=== PATIENT | male | born 1940 ===

== ENCOUNTER 2018-12-12 10:20 | Emergency (ER) | payer BC, MEDICARE ==
--- NOTE | 2018-12-12 10:38 | EDM.PDOC ---
ED HPI GENERAL MEDICAL PROBLEM - General Chief Complaint: Lower Extremity Injury/Pain Stated Complaint: HEMATOMA ON BACK OF LEG Time Seen by Provider: 12/12/18 10:25 Source of Information: Reports: Patient, Family, RN, RN Notes Reviewed History Limitations: Reports: No Limitations - History of Present Illness INITIAL COMMENTS - FREE TEXT/NARRATIVE: Pt presents to ER with c/o of a large bruise on the left medial thigh following a cardiac catheter from the left groin last week. Pt became worried because the discoloration is slowly spreading down his leg. Denies pain, swelling, increased warmth, redness, or fever. Duration: Constant Location: Reports: Lower Extremity, Left Quality: Reports: Ache Severity: Mild Improves with: Reports: None Worsens with: Reports: None Associated Symptoms: Reports: No Other Symptoms - Related Data Allergies Allergy/AdvReac Type Severity Reaction Status Date / Time No Known Allergies Allergy Verified 12/12/18 10:31 Home Meds: Home Meds Aspirin [Halfprin] 81 mg PO BID 12/12/18 [History] Calcitriol 0.25 mcg PO DAILY 12/12/18 [History] Cholecalciferol (Vitamin D3) [Vitamin D3] 400 unit PO DAILY 12/12/18 [History] Lisinopril 5 mg PO DAILY 12/12/18 [History] Metoprolol Succinate [Toprol XL 50mg] 50 mg PO DAILY 12/12/18 [History] Multivitamin [Multivitamins] 1 cap PO DAILY 12/12/18 [History] Tamsulosin [Tamsulosin 24 Hr] 0.4 mg PO Q48H 12/12/18 [History] atorvaSTATin [Lipitor] 10 mg PO BEDTIME 12/12/18 [History] Past Medical History Cardiovascular History: Reports: CAD, PTCA Social & Family History - Family History Family Medical History: Noncontributory - Living Situation & Occupation Living situation: Reports: , with Spouse Occupation: Retired Review of Systems - Review of Systems Review Of Systems: ROS reveals no pertinent complaints other than HPI. ED EXAM, GENERAL - Physical Exam Exam: See Below Exam Limited By: No Limitations General Appearance: Alert, WD/WN, No Apparent Distress Throat/Mouth: Normal Voice, No Airway Compromise Head: Atraumatic, Normocephalic Respiratory/Chest: No Respiratory Distress Cardiovascular: Normal Peripheral Pulses Extremities: Normal Range of Motion, Non-Tender, No Pedal Edema Neurological: Alert, Oriented, No Motor/Sensory Deficits Psychiatric: Normal Mood Skin Exam: Warm, Dry, Intact, Other (large hematoma with bruising from left groin to left knee) Departure - Departure Time of Disposition: 10:35 Disposition: Home, Self-Care 01 Condition: Good Clinical Impression: Hematoma of left lower extremity Qualifiers: Encounter type: initial encounter Qualified Code(s): S80.12XA - Contusion of left lower leg, initial encounter - Discharge Information *PRESCRIPTION DRUG MONITORING PROGRAM REVIEWED*: No *COPY OF PRESCRIPTION DRUG MONITORING REPORT IN PATIENT ALFONZO: No Instructions: Hematoma, [id number] Forms: ED Department Discharge Additional Instructions: No specific treatment is needed. Follow up in clinic if not resolving in 2 weeks.
== END 2018-12-12 10:41 | disposition home or self-care (01) ==
LOC: DL.ED 10:20
DX: M79.81 Nontraumatic hematoma of soft tissue (principal); Z79.82 Long term (current) use of aspirin; Z79.899 Other long term (current) drug therapy
CPT/HCPCS: 99282

== ENCOUNTER 2022-08-30 10:18 | Emergency (ER) | payer BC, MEDICARE ==
[~2022-08-30 10:18] MED LIST: Albuterol/Ipratropium 3.0-0.5 MG/3 ML Neb Soln NEB ONE
[2022-08-30 10:49] LABS: PTT,PARTIAL THROMBOPLSTIN TIME 29.4 SEC (22.0-34.0)
[2022-08-30 10:57] LABS: O2 DELIVERY DEVICE NASAL CANNULA
[2022-08-30 10:58] LABS: ALLEN TEST POSITIVE
[2022-08-30 10:59] LABS: BASE EXCESS ARTERIAL -3 mmol/L ((-2)-(+3)); BICARBONATE,ARTERIAL 21.3 mmol/L (22-26); O2 SATURATION ARTERIAL 92 % (95-100); PCO2 ARTERIAL 31 mmHg (35-45); PO2 ARTERIAL 61 mmHg (70-100)
[2022-08-30 11:01] LABS: ANION GAP 14.3 mEq/L (7-13)
[2022-08-30 11:09] LABS: CORONAVIRUS COVID-19 NAA NEGATIVE (NEGATIVE); RESPIRATORY SYNCYTIAL VIR NAA NEGATIVE (NEGATIVE)
[2022-08-30] MEDS ORDERED: Lidocaine 1% 10 ML MDV INJECT ONE (11:30)
[2022-08-30] MEDS ORDERED: Midazolam 1 MG/ML 2 ML SDV ONE (12:00)
[2022-08-30] MEDS ORDERED: Midazolam 1 MG/ML 2 ML SDV IVPUSH ONE (12:00)
[2022-08-30] MEDS ORDERED: Ondansetron 4 MG/2 ML SDV IVPUSH ONE (12:00)
[2022-08-30] MEDS ORDERED: fentaNYL 100 MCG/2 ML SDV ONE (12:00)
[2022-08-30] MEDS ORDERED: fentaNYL 100 MCG/2 ML SDV IVPUSH ONE (12:00)
[2022-08-30] MEDS ORDERED: Lactated Ringers 1,000 ML IV ONE (12:00)
[2022-08-30] MEDS ORDERED: Ondansetron 4 MG/2 ML SDV ONE (12:04)
[2022-08-30] MEDS ORDERED: Azithromycin 500 MG in Sodium Chloride 0.9% 250 ML IV ONE (12:39)
[2022-08-30] MEDS ORDERED: cefTRIAXone 2 GM Vial IVPUSH ONE (12:39)
== END 2022-08-30 13:10 ==
LOC: DL.ED 10:18
DX: J93.9 Pneumothorax, unspecified (principal); J18.9 Pneumonia, unspecified organism; D72.818 Other decreased white blood cell count; R73.9 Hyperglycemia, unspecified; N18.32 Chronic kidney disease, stage 3b; I25.10 Atherosclerotic heart disease of native coronary artery without angina pectoris; Z88.2 Allergy status to sulfonamides; Z95.1 Presence of aortocoronary bypass graft; Z79.82 Long term (current) use of aspirin; Z79.899 Other long term (current) drug therapy; Z20.822 Contact with and (suspected) exposure to COVID-19
CPT/HCPCS: 0241U; 36415; 36600; 71045; 80053; 82803; 83605; 83880; 84443; 84484; 85025; 85610; 85730; 86140; 87040; 93010; 99285; J0456; J0696; J2250; J2405; J3010; J3490; J7050; J7120; J7620-GY